=== PATIENT | male | born 1935 | race Caucasian/White ===

== ENCOUNTER → 2020-09-30 | Outpatient (CLI) | payer MEDICARE, OTHER ==
[~2020-09-30] MED LIST: ATROVENT-HFA12.9 GM INH; COLACE100 MG PO; FLAGYL500 MG PO; FLOMAX0.4 MG PO; FLOVENT 44 MCG7.9 GM INH; LEVAQUIN750 MG PO; NORCO 5-325 TA1 EACH PO; OMNICEF 300 MG300 MG PO; PREDNISONE 50 M50 MG PO; SYMBICORT 160-1 INHA INH; ZANTAC 150 MG150 MG PO; ZITHROMAX250 MG PO
== END ==
LOC: KOH-I 09:41
DX: R59.9 Enlarged lymph nodes, unspecified (principal)
CPT/HCPCS: 71250